=== PATIENT | female | born 1980 | race Hispanic/Latino ===

== ENCOUNTER 2020-02-08 19:33 | Observation (INO) | payer OTHER, SELFPAY ==
--- NOTE | 2020-02-08 20:34 | RAD ---
Chest one view HISTORY: Cough. Dyspnea. FINDINGS: Cardiac silhouette is magnified by projection. Pulmonary vasculature is unremarkable. Mediastinum is midline. No lobar consolidation or evidence of pneumothorax. IMPRESSION : No abnormalities are demonstrated.
[2020-02-08 20:35] LABS: #Eosinphils 0.5 thou/uL (0.0-0.7); #Lymphocytes 2.7 thou/uL (1.20-3.40); #Monocytes 0.8 thou/uL (0.11-0.59); #Neutrophils 11.6 thou/uL (1.40-6.50); %Basophils 0.1 % (0.0-1.0); %Eosinophils 2.9 % (0.0-10.0); %Lymphocytes 17.1 % (21.0-51.0); %Monocytes 5.4 % (0.0-10.0); %Neutrophils 74.5 % (42.0-75.0); Hemoglobin 14.9 g/dL (12.0-16.0); Mean Corpuscular HGB CONC 32.9 g/dL (32.0-36.0); Mean Corpuscular Volume 91.3 fL (78.0-98.0); Mean Platelet Volume 8.2 fL (7.4-10.4); Platelet Count 242 thou/uL (130-400); RBC Distribution Width 12.9 % (11.5-14.5); Red Blood Cell (RBC) Count 4.96 mill/uL (4.20-5.40); White Blood Cell (WBC) Count 15.6 thou/uL (4.8-10.8)
[2020-02-08] MEDS ORDERED: predniSONE 20 MG TAB ONE (20:39)
[2020-02-08] MEDS ORDERED: Magnesium 2 GM/50 ML BAG (IN WATER) ONE (20:39)
[2020-02-08 20:46] LABS: Bacteria/HPF None Seen HPF (None Seen); Bilirubin Negative (Negative); Blood, Urine 1+ (Negative); Clarity Clear (Clear); Glucose, Urine (Dipstick) Normal (Negative); Ketone, Urine Negative (Negative); Leukocyte Negative Leu/uL (Negative); Nitrite Negative (Negative); Protein, Urine (Dipstick) Negative (Neg-Trace); RBC/HPF 0-3 HPF (0-3); Specific Gravity, Urine 1.027 (1.002-1.036); Squamous Epithelial 0-3 HPF (0-3); Urobilinogen Normal mg/dL (Less than 2); WBC/HPF 0-3 HPF (0-3)
[2020-02-08 20:48] LABS: Pregnancy Test - Urine (BHCG) Negative (Negative); Pregu Control Background? CLEAR/WHITE (CLR/WHITE); Pregu Control Bar Appear? YES (CONTROL BAR); Specific Gravity 1.027 (1.002-1.036)
[2020-02-08 20:53] LABS: ALT (SGPT) 11 U/L (8-55); AST (SGOT) 14 U/L (5-34); Albumin 4.2 g/dL (3.5-5.0); Alkaline Phosphatase 84 U/L (40-110); Anion Gap 16 mmol/L (10-20); BUN (Urea Nitrogen) 14 mg/dL (7.0-18.7); Bilirubin, Total 0.5 mg/dL (0.2-1.2); Calc. Creatinine Clearance 0 mL/min (70-130); Calcium 9.1 mg/dL (7.8-10.44); Carbon Dioxide 23 mmol/L (22-29); Chloride 107 mmol/L (98-107); Estimated GFR-MDRD 68; Globulin 3.5 g/dL (2.4-3.5); Glucose 128 mg/dL (70-105); Potassium 3.6 mmol/L (3.5-5.1); Protein, Total 7.7 g/dL (6.0-8.3); Sodium 142 mmol/L (136-145)
[2020-02-08] MEDS ORDERED: cefTRIAXone\\ROCEPHIN 2 GM VIAL ONE (21:36)
[2020-02-08] MEDS ORDERED: Azithromycin 500 MG VIAL ONE (22:29)
[2020-02-08] MEDS ORDERED: Guaifenesin DM 100-10/5 ML UDCUP PO PRN (23:02)
--- NOTE | 2020-02-08 23:12 | PDOC.HHP ---
Hospitalist HPI - History of Present Illness Shortness of breath and wheezing History of Present Illness: 40-year-old woman with no known past medical history presented emergency department with a complaint of shortness of breath and wheezing of onset this morning. Patient also reports nonproductive cough. She denied any fever. She mentions she used to be experiencing the symptoms during childhood whenever she got exposed to dust or during exercise. She has never been diagnosed with asthma. Last shortness of breath and wheezing episode was about 2 years ago. Chest x-ray done in the emergency department was clear and showed no acute disease. She has leukocytosis, she was tachypneic and tachycardic in the ED admit criteria for sepsis. Lactic acid was elevated to 2.5. Sepsis protocol was initiated in the ED. patient was given IV Rocephin and Zithromax, IV fluid and prednisone. It appears she has asthma exacerbation. She is screened for Covid and the test is pending. She is admitted for further management. Hospitalist ROS - Review of Systems Other: She denied any chest pain or palpitation. She denied any abdominal pain. She denied any nausea vomiting or diarrhea. Except as documented, all other systems reviewed and negative. Hospitalist History - Past Medical History Cardiac: reports: no pertinent history - Family History Family History: reports: no pertinent history Other Family History: Reviewed and no pertinent history. - Social History Smoking Status: Never smoker Alcohol: reports: None Drugs: reports: none Living Situation: With Family - Exam General Appearance: NAD, awake alert Eye: PERRL, anicteric sclera ENT: normocephalic atraumatic, moist mucosa Neck: supple, no JVD Heart: RRR, no murmur, no gallops Heart - other findings: Tachycardia Respiratory: no rales, normal chest expansion Respiratory - other findings: Mild scattered rhonchi. Gastrointestinal: soft, non-tender, non-distended Extremities: no cyanosis, no edema Skin: normal turgor, no rashes Neurological: cranial nerve grossly intact, no weakness, no focal deficits Musculoskeletal: normal tone, normal strength, no muscle wasting Psychiatric: normal affect, normal behavior, A&O x 3 Hospitalist Results - Labs Result Diagrams: 02/08/20 20:14 02/08/20 20:14 Lab results: WBC 15.6 thou/uL (4.8-10.8) H 02/08/20 20:14 Hgb 14.9 g/dL (12.0-16.0) 02/08/20 20:14 Hct 45.3 % (36.0-47.0) 02/08/20 20:14 MCV 91.3 fL (78.0-98.0) 02/08/20 20:14 Plt Count 242 thou/uL (130-400) 02/08/20 20:14 Neutrophils % 74.5 % (42.0-75.0) 02/08/20 20:14 Sodium 142 mmol/L (136-145) 02/08/20 20:14 Potassium 3.6 mmol/L (3.5-5.1) 02/08/20 20:14 Chloride 107 mmol/L (98-107) 02/08/20 20:14 Carbon Dioxide 23 mmol/L (22-29) 02/08/20 20:14 BUN 14 mg/dL (7.0-18.7) 02/08/20 20:14 Creatinine 0.92 mg/dL (0.6-1.1) 02/08/20 20:14 Glucose 128 mg/dL (70-105) H 02/08/20 20:14 Lactic Acid 2.3 mmol/L (0.5-2.2) H 02/08/20 20:14 Calcium 9.1 mg/dL (7.8-10.44) 02/08/20 20:14 Total Bilirubin 0.5 mg/dL (0.2-1.2) 02/08/20 20:14 AST 14 U/L (5-34) 02/08/20 20:14 ALT 11 U/L (8-55) 02/08/20 20:14 Alkaline Phosphatase 84 U/L (40-110) 02/08/20 20:14 Troponin I Less than 0.010 ng/mL (< 0.028) 02/08/20 20:14 Serum Total Protein 7.7 g/dL (6.0-8.3) 02/08/20 20:14 Albumin 4.2 g/dL (3.5-5.0) 02/08/20 20:14 Urine Ketones Negative mg/dL (Negative) 02/08/20 20:25 Urine Blood 1+ (Negative) A 02/08/20 20:25 Urine Nitrite Negative (Negative) 02/08/20 20:25 Ur Leukocyte Esterase Negative Evan/uL (Negative) 02/08/20 20:25 Urine RBC 0-3 HPF (0-3) 02/08/20 20:25 Urine WBC 0-3 HPF (0-3) 02/08/20 20:25 Ur Squamous Epith Cells 0-3 HPF (0-3) 02/08/20 20:25 Urine Bacteria None Seen HPF (None Seen) 02/08/20 20:25 Hospitalist H&P A/P - Problem (1) Sepsis Code(s): A41.9 - SEPSIS, UNSPECIFIED ORGANISM Status: Acute (2) Acute bronchitis Code(s): J20.9 - ACUTE BRONCHITIS, UNSPECIFIED Status: Acute - Plan Plan: Placed under observation. Asthma exacerbation secondary to infective bronchitis is suspected. order scheduled albuterol, IV steroid, IV Levaquin. Aggressive IV hydration per sepsis protocol. Follow blood cultures. Monitor CBC.
[2020-02-08] MEDS ORDERED: Sodium Chloride 0.9% 1,000 ML IV SCH (23:15)
[2020-02-08 23:23] LABS: SARS-CoV-2 NAA Rapid Test Not Detected (NotDetected)
[2020-02-08 23:30] LABS: Lactic Acid 1.3 mmol/L (0.5-2.2)
[2020-02-09] MEDS: Albuterol Sulfate 2.5 mg/3 ml Neb NEB SCH ×3 (01:29→13:04)
[2020-02-09] MEDS: Sodium Chloride 0.9% 1,000 ML IV SCH ×2 (03:11→09:34)
[2020-02-09 03:16] VITALS: BMI 37.5
[2020-02-09] MEDS: methylPREDNISolone Sod Succ 40 MG VIAL IVP SCH ×3 (04:06→12:38)
[2020-02-09 05:59] LABS: #Monocytes 0.1 thou/uL (0.11-0.59); #Neutrophils 8.8 thou/uL (1.40-6.50); %Basophils 0.3 % (0.0-1.0); %Lymphocytes 9.8 % (21.0-51.0); %Monocytes 0.7 % (0.0-10.0); %Neutrophils 89.1 % (42.0-75.0); Hemoglobin 14.1 g/dL (12.0-16.0); Mean Corpuscular HGB CONC 32.7 g/dL (32.0-36.0); Mean Corpuscular Hemoglobin 29.9 pg (27.0-31.0); Mean Corpuscular Volume 91.5 fL (78.0-98.0); Mean Platelet Volume 8.3 fL (7.4-10.4); Platelet Count 254 thou/uL (130-400); RBC Distribution Width 12.6 % (11.5-14.5); White Blood Cell (WBC) Count 9.9 thou/uL (4.8-10.8)
[2020-02-09 06:16] LABS: Anion Gap 14 mmol/L (10-20); BUN (Urea Nitrogen) 9 mg/dL (7.0-18.7); Calc. Creatinine Clearance 174 mL/min (70-130); Calcium 8.5 mg/dL (7.8-10.44); Carbon Dioxide 19 mmol/L (22-29); Estimated GFR-MDRD Greater than 90; Glucose 163 mg/dL (70-105); Potassium 4.2 mmol/L (3.5-5.1)
[2020-02-09 06:20] LABS: Chloride 109 mmol/L (98-107); Sodium 138 mmol/L (136-145)
[2020-02-09] MEDS ORDERED: Famotidine 20 MG TAB PO SCH (09:00)
[2020-02-09] MEDS ORDERED: Enoxaparin Sodium 40 MG/0.4 ML SYRINGE SC SCH (09:00)
[2020-02-09 10:45] VITALS: TEMP 98.3
[2020-02-09 13:10] VITALS: BP 125/82
--- NOTE | 2020-02-09 15:10 | PDOC.HOSPP ---
- Subjective Encounter Date: 02/09/20 Encounter Time: 15:08 Subjective: Ms. Martinez was seen today in follow-up of acute bronchitis. She says she feels much better. No new complaints. - Objective Vital Signs & Weight: Vital Signs (12 hours) Temp Pulse Resp BP Pulse Ox 02/09/20 12:00 98.3 F 103 H 20 125/82 97 02/09/20 08:00 98.3 F 105 H 18 118/80 97 02/09/20 07:13 90 18 100 02/09/20 05:36 97.8 F 83 18 118/80 96 Weight Weight 225 lb 4.8 oz I&O: 02/08/20 02/09/20 02/10/20 06:59 06:59 06:59 Intake Total 625 Balance 625 Result Diagrams: 02/09/20 05:35 02/09/20 05:35 Hospitalist ROS - Medication Medications: Active Medications Generic Name Dose Route Start Last Admin Trade Name Freq PRN Reason Stop Dose Admin Albuterol Sulfate 2.5 mg 02/09/20 01:00 02/09/20 13:04 Albuterol Sulfate 2.5 Mg/3 Ml Neb NEB Not Given [id number] DONAVON Enoxaparin Sodium 40 mg 02/09/20 09:00 02/09/20 09:31 Enoxaparin Sodium 40 Mg/0.4 Ml Syringe SC 40 mg 0900 DONAVON Administration Famotidine 20 mg 02/09/20 09:00 02/09/20 09:31 Famotidine 20 Mg Tab PO 20 mg BID DONAVON Administration Levofloxacin 750 mg/ Device 150 mls @ 100 mls/hr 02/08/20 23:59 02/09/20 04:05 IVPB Not Given Q24HR DONAVON Methylprednisolone Sodium Succinate 40 mg 02/08/20 23:59 02/09/20 12:38 Methylprednisolone Sod Succ 40 Mg Vial IVP 40 mg Q6HR DONAVON Administration Sodium Chloride 10 ml 02/09/20 09:00 02/09/20 09:32 Flush - Normal Saline 10 Ml Syringe IVF Not Given Q12HR DONAVON - Exam Eye: PERRL, anicteric sclera Heart: RRR, no murmur, no gallops, no rubs, normal peripheral pulses Respiratory: CTAB, no rales, no ronchi, normal chest expansion, wheezes Gastrointestinal: soft, non-tender, non-distended, normal bowel sounds, no palpable masses, no hepatomegaly Extremities: no cyanosis, no edema Hosp A/P (1) Acute bronchitis Code(s): J20.9 - ACUTE BRONCHITIS, UNSPECIFIED Status: Acute (2) Sepsis Code(s): A41.9 - SEPSIS, UNSPECIFIED ORGANISM Status: Acute - Plan * Acute Bronchitis- Musch improved, and she needs to be tested for Asthma * Sepsis- resolved * Stable for discharge home.
--- NOTE | 2020-02-09 17:22 | PDOC.DS.DS ---
Provider - Provider Date of Admission: 02/08/20 22:50 Date of Discharge: 02/09/20 Admitting Provider: Gerber Yoon MD Primary Care Physician: NO PCP PROVIDER Course - Hospital Course Hospital Course: Ms. Martinez is a 40-year-old female with no significant past medical history. She presented to the emergency room with several days of shortness of breath cough and wheezing. She got to the point where she was having difficulty breathing and as a result she came to the emergency room for evaluation. Chest x-ray in the emergency room was negative for any infiltrates or effusions however due to significant wheezing she was admitted to the hospital. She was placed on IV steroids as well as IV Levaquin and duo nebs. A Covid 19 screen was done and was negative. The following day she was much improved and was not requiring any supplemental oxygen. She was instructed that she should have pulmonary function test as an outpatient to assess for possible asthma. And was able to be discharged home. She should follow-up with her primary care physician in 1 to 2 weeks. Resuscitation Status: 02/08/20 23:02 Resuscitation Status Routine Resuscitation Status: FULL: Full Resuscitation - Labs Lab Results: 02/09/20 05:35 02/09/20 05:35 Abnormal Lab Results - Last 48 hrs 02/08/20 20:14: WBC 15.6 H, Lymphocytes % 17.1 L, Neutrophils # 11.6 H, Monocytes # 0.8 H 02/08/20 20:14: Lactic Acid 2.3 H 02/08/20 20:14: D-Dimer Less than 0.27 L 02/08/20 20:25: Urine Blood 1+ A 02/09/20 05:35: Chloride 109 H, Carbon Dioxide 19 L 02/09/20 05:35: Neutrophils % 89.1 H, Lymphocytes % 9.8 L, Neutrophils # 8.8 H, Lymphocytes # 1.0 L, Monocytes # 0.1 L Microbiology - Entire Visit 02/08/20 20:14 Venous blood - Left Hand Blood Culture - Preliminary Specimen has been received and culture in progress. No Growth to date. 02/08/20 20:14 Venous blood - Left Arm Blood Culture - Preliminary Specimen has been received and culture in progress. No Growth to date. 02/08/20 20:05 Nasal swab Influenza Types A,B Direct EIA - Final - Physical Exam Vitals: Vital Signs (12 hours) Temp Pulse Resp BP Pulse Ox 02/09/20 12:00 98.3 F 103 H 20 125/82 97 02/09/20 08:20 97 02/09/20 08:00 98.3 F 105 H 18 118/80 97 02/09/20 07:13 90 18 100 02/09/20 05:36 97.8 F 83 18 118/80 96 Weight Weight 225 lb 4.8 oz Physical Exam: The patient was seen and examined on the day of discharge. Problem - Problem (1) Acute bronchitis Code(s): J20.9 - ACUTE BRONCHITIS, UNSPECIFIED Status: Acute (2) Sepsis Code(s): A41.9 - SEPSIS, UNSPECIFIED ORGANISM Status: Acute Plan - Discharge Medications Prescriptions: Albuterol Sulfate [Albuterol Sulfate Hfa] 8.5 gm IH Q6HR PRN #1 hfa.aer.ad PRN Reason: Sob &/Or Wheezing Levofloxacin [Levaquin] 500 mg PO DAILY #5 tab methylPREDNISolone [methylPREDNISolone Dosepak] 4 mg PO ASDIR #1 each Home Medications: Medication Instructions Recorded Confirmed Type Albuterol Sulfate [Albuterol 8.5 gm IH Q6HR PRN #1 hfa.aer.ad 02/09/20 Rx Sulfate Hfa] Levofloxacin [Levaquin] 500 mg PO DAILY #5 tab 02/09/20 Rx methylPREDNISolone 4 mg PO ASDIR #1 each 02/09/20 Rx [methylPREDNISolone Dosepak] Allergies: No Known Drug Allergies Allergy (Unverified 02/09/20 03:18) - Discharge Instructions Discharge Instructions:: Follow-up with your Primary Care Provider in 1 week Recommend Out Patient Pulmonary Function Tests Activity:: Activity as Tolerated Nourishment:: Heart Healthy Diet - Follow up Plan Referrals: PROVIDER,NO PCP [Primary Care Provider] - Disposition: HOME Quality - Care Measures CORE MEASURES:: N/A
== END 2020-02-09 17:32 | disposition home or self-care (01) ==
LOC: ERS 19:33 → ERHOLD 22:50 → SJJU 02-09 02:45
PROVIDERS: ADMIT Internal Medicine; ATTEND Internal Medicine
DX: A41.9 Sepsis, unspecified organism (principal); J20.9 Acute bronchitis, unspecified; Z20.828 Contact with and (suspected) exposure to other viral communicable diseases
CPT/HCPCS: 36415; 71045; 80048; 80053; 81003; 81015; 81025; 83605; 84145; 84484; 85025; 85379; 87040; 87804; 93005; 94640; 96365; 96367; 96372; 96375; 96376; G0378; J0456; J0696; J1650; J2920; J3475; J7512; J7611; U0002